=== PATIENT | male | born 1955 | race Caucasian/White ===

== ENCOUNTER 2018-10-25 08:30 | Day surgery (SDC) | payer OTHER, SELFPAY ==
[2018-10-15 08:04] VITALS: BMI 21.7
[2018-10-25] VITALS (7 sets, daily range): BP systolic 118–135; BP diastolic 74–87; PULSE 74–82; RESP 12–16; TEMP 36.3–36.5; O2SAT 93–97; BMI 22.0
[2018-10-25] MEDS: Cefazolin 2 GM in 0.9% Normal Saline 100 ML IV (09:21)
[2018-10-25] MEDS: Bupivacaine 0.5% PF 10 ML VIAL (09:48)
--- NOTE | 2018-10-25 09:54 | PCM.DC.POR ---
Discharge Diet: No Restrictions - Pain medication may cause nausea. You should typically eat light foods as you take your pain medication. Discharge Activity: May Shower - with the bandage in place 1-2 days after surgery. DO NOT SHOWER WHEN YOUR PORT IS ACCESSED. Additional Activity Instructions:: May not drive, work with heavy equipment, or sign legal documents for [address] you are no longer taking narcotic pain medications. You may drive when you are no longer taking pain medications. Additional Dressing/Incision Instructions:: Leave the bandage on for 2-3 days. When you remove the bandage, leave the steri-strips intact until they fall off. Allergies/Adverse Reactions: Allergies No Known Allergies Allergy (Verified 10/25/18 08:46) Medications to take at Discharge Albuterol Inhaler [Ventolin Hfa (SP)] 2 puff INHALATION Q4H PRN PRN 10/06/18 Acetaminophen [Tylenol] 650 mg PO Q6H PRN PRN 10/12/18 Oxycodone HCl/Acetaminophen [Percocet 5/325] 1 - 2 tab PO Q4H PRN PRN 5 Days #30 tab 10/25/18 The following prescriptions were given: Oxycodone HCl/Acetaminophen [Percocet 5/325] 1 - 2 tab PO Q4H PRN PRN 5 Days #30 tab PRN Reason: Pain Primary Care Physician: [facility] [Primary Care Provider] - Test Results: Test results from this visit will be discussed in further detail at your follow-up appointment, if applicable. Please Follow Up With: Tomas Gilbert MD - [phone] When: Please plan to follow up in 7 days in the office.
--- NOTE | 2018-10-25 09:56 | OP.PCM_ITS ---
Problem List (1) Encounter for adjustment or management of vascular access device Status: Acute Report of Operation Date of Procedure: 10/25/18 Pre-Operative Diagnosis: z45.2 vascular catheter fitting and adjustment Post-Operative Diagnosis: Same Surgery/Procedure Performed:: Placement of a right IJ PowerPort Type of Anesthesia:: Local MAC Anesthesiologist: Murphy Schultz Estimated Blood Loss (mL): < 5 cc Description of Procedure: Patient was brought into the operating room. Placed in the supine position. I ultrasound the right neck identified the internal jugular vein marked the neck and chest appropriately. The neck and chest were then sterilely prepped and draped in the usual fashion. Local was injected into the neck. Seldinger's technique was used to gain access to the right internal jugular vein. Guidewire was placed over the needle. Needle was removed. Fluoroscopy was used to confirm placement of the wire into the superior vena cava. I injected local onto the chest. Incision was made. Electrocautery was used to create a pocket for the port. A skin ralf in the neck was made. Dilator and sheath were placed over the guidewire the dilator and guidewire were removed. Single lumen catheter was placed over the sheath. The sheath was removed. Fluoroscopy was used to confirm proper length. I tunneled from the pocket created over the collarbone into the neck and brought the catheter down. I cut it to length. Placed a locking hub onto the catheter. The port onto the catheter. The tube was secured with a locking hub. It flushed and irrigated well. It was flushed with 5 cc of hep flush. It was sutured into the pocket created with 2 sutures of 2-0 Prolene. Skin incisions were brought together with deep dermal stitches of 3-0 Vicryl. Dermabond was applied. Sterile dressings were applied. Postoperative chest x-ray was obtained showing the catheter to be in good p lacement and no pneumothorax. Patient tolerated the procedure well. - Admit VTE Documentation VTE Present on Admission: No VTE Mechan Device Prophylaxis: SCD's VTE Pharm Prophylaxis ordered?: No Reason prophylaxis not ordered:: Treatment Not Indicated
--- NOTE | 2018-10-25 09:56 | RAD_ITS ---
STUDY: X-RAY CHEST REASON FOR EXAM: Male, 63 years old. Right-sided port placement. TECHNIQUE: PA and lateral views of the chest. COMPARISON: Comparison is made with prior study dated August 31, 2018. FINDINGS: A right-sided portacatheter has been placed. The tip is at the junction of the superior vena cava and right atrium. Hyperinflation. Findings suggest a mild degree of scarring in the There is no demonstrated pleural abnormality. Normal size heart. Normal mediastinum and cheri. Normal visualized pulmonary arteries. Normal visualized aortic arch and descending thoracic aorta. Normal visualized thoracic spine. Normal visualized ribs, clavicles, and shoulders. There is no demonstrated abnormality of the visualized soft tissue structures of the upper abdomen. Right upper lobe. This is unchanged. RAD/CXR for Line Placement IMPRESSION: The tip of the dinora catheter is at the junction of the superior vena cava and right atrium. Electronically Signed: Edward Carlos MD at 10:29 EST Tel [phone], Service support ,
== END 2018-10-25 11:41 | disposition home or self-care (01) ==
LOC: SDC 08:30 → AC 08:31
PROVIDERS: Referring Provider Surgery; Visit Provider Surgery
PROC: (CPT 36561; principal; 2018-10-25 10:15)
DX: Z45.2 Encounter for adjustment and management of vascular access device (principal); C34.91 Malignant neoplasm of unspecified part of right bronchus or lung; J44.9 Chronic obstructive pulmonary disease, unspecified; I10 Essential (primary) hypertension; E78.5 Hyperlipidemia, unspecified; Z87.891 Personal history of nicotine dependence
CPT/HCPCS: 36561; 71045; 77001; J7120; C1788